=== PATIENT | male | born 1960 | race Caucasian/White ===

== ENCOUNTER 2021-02-21 21:16 | Emergency (ER) | payer MEDICARE, OTHER ==
[~2021-02-21] VITALS: Ht 170.2 cm; Wt 95.5 kg
[~2021-02-21 21:16] MED LIST: AMBIEN 10MG10 MG PO; ASPIRIN 81M81 MG/TA2 PO; BUPROBAN150 MG PO; FLEXERIL 1010 MG/TAB PO; HCTZ 25MG TAB25 MG PO; HCTZ 25MG25 MG PO; LAMICTAL ODT200 MG PO; LAMICTAL150 MG PO; LEVAQUIN 750MG750 M1 PO; LOMOTRIGINE; LOPID600 MG PO; LORTAB 5/500 501 TAB PO; LOVASTATIN40 MG PO; MEDROL 4MG DOSPA4 MG PO; NIACIN500 M3 PO; NORCO 325 MG-51 TAB PO; OMEPRAZOLE D/R20 MG PO; PERCOCET 325 MG1 TA2 PO; PERCR 7.5 PO; PRILOTC PO; SUPER EPA 1201200 MG PO; TYLENOL 500MG500 MG PO; VALIUM 5MG T5 MG/TAB PO; VIAGRA50 MG PO; WELLBUTRIN SR150 M1 PO; ZESTRIL 20MG TA20 MG PO
[2021-02-21 21:17] VITALS: TEMP 98
[2021-02-21 22:13] LABS: BASO # 0.1 K/mm3 (0.0-0.2); BASO % 0.9 % (0.0-2.0); EOS # 0.4 K/mm3 (0.0-0.7); GRAN # 6.6 K/mm3 (1.4-6.5); GRAN % 66.3 % (42.2-75.2); HEMATOCRIT 46.4 % (42.0-52.0); HEMOGLOBIN 16.2 g/dl (13.5-18.0); LYMPH # 2.2 K/mm3 (1.2-3.4); MEAN CELL VOLUME 90 fl (80.0-100.0); MEAN CORPUSCULAR HEMOGLOBIN 32 pg (27-31); MEAN CORPUSCULAR HGB CONC 35 g/dl (33.0-37.0); MONO # 0.6 K/mm3 (0.1-0.6); PLATELET COUNT 208 K/mm3 (130-400); RED BLOOD COUNT 5.15 M/mm3 (4.20-5.60); REDCELL DISTRIBUTION WIDTH-CV 11.9 % (11.5-14.5)
[2021-02-21 22:32] LABS: BILIRUBIN,TOTAL 0.5 mg/dL (0.2-1.2); CALCIUM 8.7 mg/dL (8.4-10.2); CREATININE, serum 1.07 mg/dL (0.72-1.25); POTASSIUM 4.1 mmol/L (3.5-4.5); TOTAL PROTEIN 6.7 gm/dL (6.2-8.1)
[2021-02-21 22:38] LABS: TROPONIN-I 0.024 ng/mL (0.00-0.033)
[2021-02-21] MEDS ORDERED: PERCOCET 325 MG1 TA2 PO ×2 (23:32→23:46)
[2021-02-22 00:45] VITALS: BP 144/78; PULSE 76
== END 2021-02-22 | disposition home or self-care (01) ==
LOC: COL.ER 21:16
PROVIDERS: Personal Emergency Response Attendant
DX: R07.89 Other chest pain (principal); I10 Essential (primary) hypertension; K21.9 Gastro-esophageal reflux disease without esophagitis; F17.210 Nicotine dependence, cigarettes, uncomplicated; Z79.899 Other long term (current) drug therapy
CPT/HCPCS: J2270; J2405; Q9967